=== PATIENT | male | born 1995 | race Caucasian/White ===

== ENCOUNTER 2016-11-10 19:26 | Emergency (ER) | payer SELFPAY ==
[~2016-11-10] VITALS: Ht 180.3 cm; Wt 68.0 kg
[~2016-11-10 19:26] MED LIST: ADDERALL30 MG; AMOXICILLIN500 M2 PO; AUGMENTIN 875875 MG PO; BACTRIM DS 8001 TA1 PO; FLEXERIL10 MG PO; HYDROCODONE BIT1 T11 PO; KEFLEX500 MG PO; MOTRIN600 MG PO; MOTRIN800 MG PO; NAPROSYN500 MG PO; PENICILLIN VK500 MG PO; PREDNISONE20 M1 PO; Peridex 473 ML473 ML PO; TRAMADOL HCL50 MG PO; TYLENOL W/CODEI1 TA2 PO; ULTRAM50 MG PO; ZOFRAN ODT4 MG SL; ZOFRAN ODT8 MG PO
[2016-11-10] MEDS ORDERED: ADDERALL XR 3030 MG PO (19:56)
== END 2016-11-10 21:32 | disposition home or self-care (01) ==
LOC: ED 19:26
DX: S86.911A Strain of unspecified muscle(s) and tendon(s) at lower leg level, right leg, initial encounter (principal); F17.200 Nicotine dependence, unspecified, uncomplicated; X58.XXXA Exposure to other specified factors, initial encounter; Y93.89 Activity, other specified; Y92.481 Parking lot as the place of occurrence of the external cause; Y99.9 Unspecified external cause status

== ENCOUNTER 2017-06-15 16:41 | Emergency (ER) | payer OTHER ==
[~2017-06-15 16:41] MED LIST changes: +ADDERALL XR 3030 MG PO
[2017-06-15] MEDS ORDERED: ANAPROX DS550 MG PO (17:26)
[2017-06-15] MEDS ORDERED: CLINDAMYCIN HC300 MG PO (17:26)
== END 2017-06-15 17:49 | disposition home or self-care (01) ==
LOC: ED 16:41
DX: K08.89 Other specified disorders of teeth and supporting structures (principal); F17.200 Nicotine dependence, unspecified, uncomplicated

== ENCOUNTER → 2018-07-22 | Outpatient (CLI) | payer OTHER ==
[~2018-07-22] MED LIST changes: +ACCU-CHEK FAST1 EACH MC; +ALCOHOL PADS1 EACH T; +ANAPROX DS550 MG PO; +CLINDAMYCIN HC300 MG PO; +Humalog SQ; +INSULIN PEN NE1 EACH MC; +LISINOPRIL2.5 MG PO; +METFORMIN HCL500 M2 PO; +TEST STRIPS1 EACH MC
== END | disposition home or self-care (01) ==
LOC: RESCLI 10:19
DX: E11.9 Type 2 diabetes mellitus without complications (principal); F17.200 Nicotine dependence, unspecified, uncomplicated; Z79.4 Long term (current) use of insulin; Z71.6 Tobacco abuse counseling; Z79.899 Other long term (current) drug therapy

== ENCOUNTER → 2018-11-02 | Outpatient (CLI) | payer OTHER ==
[2018-11-02 15:07] LABS: BASO % 0.5 % (0.0-1.0); EOS # 0.1 10*3/uL (0.0-0.4); EOS % 1.6 % (1.0-4.0); HEMATOCRIT 42.6 % (42.0-52.0); HEMOGLOBIN 14.6 g/dl (14.0-18.0); LYMPH # 1.1 10*3/uL (1.3-4.4); LYMPH % 25.2 % (27.0-41.0); MEAN CELL VOLUME 88.2 fl (80.0-94.0); MEAN CORPUSCULAR HGB 30.2 pg (27.0-31.0); MEAN CORPUSCULAR HGB CONC 34.3 g/dl (33.0-37.0); MEAN PLATELET VOLUME 10.7 fl (9.6-12.3); MONO # 0.5 10*3/uL (0.1-1.0); MONO % 11.6 % (3.0-9.0); NEUT # 2.7 10*3/uL (2.3-7.9); NEUT % 60.6 % (47.0-73.0); PLATELET COUNT AUTOMATED 193 10*3/uL (130-400); RED BLOOD COUNT 4.83 10*6/uL (4.50-5.90); RED CELL DISTRI WIDTH 12.8 % (0-14.5); WHITE BLOOD COUNT 4.4 10*3/uL (4.8-10.8)
[2018-11-02 15:20] LABS: BUN 15 mg/dl (7-24); CHLORIDE 96 mmol/L (98-107); CREATININE 1.21 mg/dL (0.70-1.30); POTASSIUM 4.1 mmol/L (3.5-5.1); SODIUM 131 mmol/L (136-145)
[2018-11-10 17:13] LABS: INSULIN ANTIBODIES 141598 51 uU/mL (.)
== END | disposition home or self-care (01) ==
LOC: LAB 13:34 → RESCLI 13:34
PROVIDERS: Internal Medicine
DX: E11.9 Type 2 diabetes mellitus without complications (principal)

== ENCOUNTER → 2018-11-10 | Outpatient (CLI) | payer OTHER | END | disposition home or self-care (01) | LOC: RESCLI 01:33 | DX: E11.9 Type 2 diabetes mellitus without complications (principal); F17.210 Nicotine dependence, cigarettes, uncomplicated; Z79.4 Long term (current) use of insulin; Z71.6 Tobacco abuse counseling; Z88.8 Allergy status to other drugs, medicaments and biological substances; Z79.899 Other long term (current) drug therapy ==

== ENCOUNTER → 2018-11-23 | Outpatient (CLI) | payer OTHER | END | disposition home or self-care (01) | LOC: RESCLI 13:14 | DX: E11.9 Type 2 diabetes mellitus without complications (principal); F17.210 Nicotine dependence, cigarettes, uncomplicated; Z79.4 Long term (current) use of insulin; Z79.899 Other long term (current) drug therapy; Z79.84 Long term (current) use of oral hypoglycemic drugs; Z88.8 Allergy status to other drugs, medicaments and biological substances ==

== ENCOUNTER 2019-09-10 15:28 | Emergency (ER) | payer OTHER ==
[~2019-09-10] VITALS: Ht 177.8 cm; Wt 72.6 kg
[2019-09-10] MEDS ORDERED: NOVOLOG10 ML IV (16:09)
== END 2019-09-10 16:11 | disposition home or self-care (01) ==
LOC: ED 15:28
DX: E11.65 Type 2 diabetes mellitus with hyperglycemia (principal); Z76.0 Encounter for issue of repeat prescription; F17.200 Nicotine dependence, unspecified, uncomplicated; Z79.899 Other long term (current) drug therapy

== ENCOUNTER → 2019-11-02 | Outpatient (CLI) | payer OTHER ==
[~2019-11-02] MED LIST changes: +NOVOLOG10 ML IV
== END | disposition home or self-care (01) ==
LOC: RESCLI 14:03
DX: E11.65 Type 2 diabetes mellitus with hyperglycemia (principal); Z71.6 Tobacco abuse counseling; K21.9 Gastro-esophageal reflux disease without esophagitis; F12.90 Cannabis use, unspecified, uncomplicated; R56.9 Unspecified convulsions; Z79.4 Long term (current) use of insulin; Z72.0 Tobacco use; Z79.899 Other long term (current) drug therapy

== ENCOUNTER 2020-01-04 02:13 | Inpatient (IN) | payer OTHER ==
[2020-01-04] VITALS (7 sets, daily range): BP systolic 92–123; BP diastolic 50–71
[~2020-01-04] VITALS: Ht 180.3 cm; Wt 61.0 kg
[2020-01-04 03:02] LABS: BASO % 0.6 % (0.0-1.0); EOS % 0.6 % (1.0-4.0); HEMATOCRIT 46.3 % (42.0-52.0); HEMOGLOBIN 15.6 g/dl (14.0-18.0); LYMPH # 0.6 10*3/uL (1.3-4.4); LYMPH % 8.9 % (27.0-41.0); MEAN CELL VOLUME 91.9 fl (80.0-94.0); MEAN CORPUSCULAR HGB CONC 33.7 g/dl (33.0-37.0); MEAN PLATELET VOLUME 10.2 fl (9.6-12.3); MONO # 0.7 10*3/uL (0.1-1.0); MONO % 11.3 % (3.0-9.0); NEUT # 4.9 10*3/uL (2.3-7.9); NEUT % 78.1 % (47.0-73.0); PLATELET COUNT AUTOMATED 204 10*3/uL (130-400); RED BLOOD COUNT 5.04 10*6/uL (4.50-5.90); RED CELL DISTRI WIDTH 11.6 % (0-14.5); WHITE BLOOD COUNT 6.3 10*3/uL (4.8-10.8)
[2020-01-04 03:18] LABS: ALBUMIN 3.6 gm/dl (3.1-4.5); ALKALINE PHOSPHATASE 132 U/L (45-117); BUN 14 mg/dl (7-24); CHLORIDE 90 mmol/L (98-107); CREATININE 1.46 mg/dL (0.70-1.30); POTASSIUM 4.3 mmol/L (3.5-5.1); SGOT/AST 36 IU/L (3-35); SGPT/ALT 57 U/L (12-78); SODIUM 124 mmol/L (136-145); TOTAL PROTEIN 7.6 gm/dL (6.4-8.2)
--- NOTE | 2020-01-04 05:25 | NUR ---
A 24, admitted to ICCU, under the services of EMPERATRIZ Barnhart DO with a diagnosis of HYPONATREMIA, DKA. Chief complaint is GENERALIZED BODY ACHES & COUGH. REST OF THE FAMILY TESTED + FLU A FEW DAYS AGO. Patient arrived via stretcher from ER. Monitor applied. Initial assessment completed. Vital signs taken and recorded. EMPERATRIZ BARNHART DO notified of admission to the unit. Orders received. See assessment for past medical history, medications and allergies. Patient and/or family oriented to unit. [facility]U visitation policy reviewed. Clothing/patient valuable form completed. INSULIN DRIP & IVF BOLUS INFUSING KAREN WILLAMS
[2020-01-04] MEDS ORDERED: PROTONIX20 MG PO (05:37)
[2020-01-04] MEDS ORDERED: LANTUS SOL100 UNIT/1 SC (05:38)
[2020-01-04] MEDS ORDERED: HUMALOG100 UNIT/1 SQ (05:38)
[2020-01-04 06:28] LABS: BUN 12 mg/dl (7-24); CHLORIDE 101 mmol/L (98-107); CREATININE 1.29 mg/dL (0.70-1.30); PHOSPHOROUS 1.6 mg/dL (2.5-4.9); POTASSIUM 3.5 mmol/L (3.5-5.1); SODIUM 133 mmol/L (136-145)
--- NOTE | 2020-01-04 06:39 | NUR ---
DR SALCEDO NOTIFIED OF AM LAB RESULTS (LOW PHOSPHORUS & GLUCOSE)
--- NOTE | 2020-01-04 07:43 | NUR ---
TYLENOL GIVEN PO FOR ELEVATED TEMP
--- NOTE | 2020-01-04 08:00 | NUR ---
INSULIN DRIP DECREASED TO 9 UNITS/HR - DR TALBOT AWARE OF GLUCOSE LEVEL & NEW ORDER RECEIVED
--- NOTE | 2020-01-04 09:00 | NUR ---
INSULIN DECREASED TO 5 UNITS/HR
[2020-01-04 09:08] LABS: BUN 10 mg/dl (7-24); CHLORIDE 109 mmol/L (98-107); CREATININE 0.92 mg/dL (0.70-1.30); POTASSIUM 3.4 mmol/L (3.5-5.1); SODIUM 137 mmol/L (136-145)
--- NOTE | 2020-01-04 09:30 | NUR ---
INSULIN DRIP STOPPED - DR TALBOT MADE AWARE OF BS 73..
[2020-01-04 12:23] LABS: BUN 11 mg/dl (7-24); CHLORIDE 105 mmol/L (98-107); CREATININE 0.93 mg/dL (0.70-1.30); POTASSIUM 4.3 mmol/L (3.5-5.1); SODIUM 134 mmol/L (136-145)
--- NOTE | 2020-01-04 13:21 | NUR ---
DR AYERS ROUNDED A SECOND TIME TO CHECK ON PATIENT STATUS
--- NOTE | 2020-01-04 16:40 | NUR ---
PATIENT DOZING SINCE TYLENOL GIVEN
[2020-01-04 16:52] LABS: BUN 10 mg/dl (7-24); CHLORIDE 105 mmol/L (98-107); CREATININE 0.87 mg/dL (0.70-1.30); SODIUM 134 mmol/L (136-145)
--- NOTE | 2020-01-04 20:00 | NUR ---
Patient sitting up in bed, states he is feeling better. Patient states he is eating, with no nausea. Patient received visitor and was the visitor was instructed with proper use of ppe. Patient denies any needs at this time. Patient left with call light in reach.
--- NOTE | 2020-01-04 21:34 | NUR ---
Patient medicated with tylenol for headache. Will reassess.
--- NOTE | 2020-01-04 23:46 | NUR ---
Patient stated the tylenol was effective for his headache.
[2020-01-05] VITALS: BP 94/47
--- NOTE | 2020-01-05 02:30 | NUR ---
24 HR chart check completed.
[2020-01-05 04:00] VITALS: BP 109/67
[2020-01-05 06:18] LABS: BASO % 0.9 % (0.0-1.0); EOS # 0.1 10*3/uL (0.0-0.4); EOS % 2.9 % (1.0-4.0); HEMATOCRIT 41.7 % (42.0-52.0); HEMOGLOBIN 13.9 g/dl (14.0-18.0); LYMPH # 1.5 10*3/uL (1.3-4.4); LYMPH % 32.7 % (27.0-41.0); MEAN CELL VOLUME 89.9 fl (80.0-94.0); MEAN CORPUSCULAR HGB CONC 33.3 g/dl (33.0-37.0); MEAN PLATELET VOLUME 10.4 fl (9.6-12.3); MONO # 0.9 10*3/uL (0.1-1.0); MONO % 19.1 % (3.0-9.0); PLATELET COUNT AUTOMATED 171 10*3/uL (130-400); RED BLOOD COUNT 4.64 10*6/uL (4.50-5.90); RED CELL DISTRI WIDTH 11.5 % (0-14.5); WHITE BLOOD COUNT 4.5 10*3/uL (4.8-10.8)
[2020-01-05 06:46] LABS: BUN 14 mg/dl (7-24); CHLORIDE 100 mmol/L (98-107); CREATININE 0.79 mg/dL (0.70-1.30); PHOSPHOROUS 3.5 mg/dL (2.5-4.9); POTASSIUM 3.6 mmol/L (3.5-5.1); SODIUM 132 mmol/L (136-145)
[2020-01-05 08:00] VITALS: BP 112/71
--- NOTE | 2020-01-05 08:44 | NUR ---
PT AAOX3. VSS. PT DENIES COMPLAINTS AT PRESENT TIME. NO ACUTE DISTRESS NOTED.
--- NOTE | 2020-01-05 09:00 | NUR ---
PT REFUSED BATH. HE STATED "I'LL GET A SHOWER WHEN I GET HOME."
--- NOTE | 2020-01-05 09:33 | NUR ---
PT ASKED TO SEE THE DOCTOR. DR PUCKETT IN TO SEE PT. PT STATED HE WANTED TO BE DISCHARGED. THE PT AGREED TO STAY UNTIL SEEN BY DR AYERS.
--- NOTE | 2020-01-05 11:00 | NUR ---
PT'S BEDSIDE GLUCOSE IS 500. PT REFUSED RESTICK OR REDRAW FROM LAB. DOCTOR WILL BE NOTIFIED.
[2020-01-05] MEDS ORDERED: Lantus SC (11:24)
[2020-01-05] MEDS ORDERED: TAMIFLU 75MG CA75 MG PO (11:24)
--- NOTE | 2020-01-05 11:31 | NUR ---
DR AYERS NOTIFIED OF PT'S BLOOD SUGAR OF 500 AND OF PT WANTING TO LEAVE AMA. DR AYERS IN TO SEE PT. DISCSSED PT'S CONDITION WITH PT. DISCHARGE ORDERS RECEIVED. PT WOULD ONLY TAKE 11 UNITS OF INSULIN COVERAGE FOR BLOOD SUGAR OF 500. HE STATES HE IS "WAY TOO BRITTLE"
--- NOTE | 2020-01-05 11:50 | NUR ---
Discharge instructions reviewed with patient. Patient receptive and verbalizes understanding. Follow-up care arranged. Written instructions given to patient. IZA OLSON
== END 2020-01-05 11:50 | disposition home or self-care (01) | DRG 420 ==
LOC: ED 02:13 → ICCU 03:38 → EDHOLD 03:38 → ICCU 05:11
PROVIDERS: Emergency Medicine; Internal Medicine; Student in an Organized Health Care Education/Training Program; ADMIT Internal Medicine
DX: E10.10 Type 1 diabetes mellitus with ketoacidosis without coma (principal); N17.0 Acute kidney failure with tubular necrosis; J10.1 Influenza due to other identified influenza virus with other respiratory manifestations; E87.1 Hypo-osmolality and hyponatremia; E87.8 Other disorders of electrolyte and fluid balance, not elsewhere classified; E44.1 Mild protein-calorie malnutrition; R74.0 Nonspecific elevation of levels of transaminase and lactic acid dehydrogenase [LDH]; F17.210 Nicotine dependence, cigarettes, uncomplicated; Z68.1 Body mass index [BMI] 19.9 or less, adult; Z71.6 Tobacco abuse counseling; Z79.899 Other long term (current) drug therapy; Z83.3 Family history of diabetes mellitus

== ENCOUNTER 2020-06-08 21:57 | Observation (INO) | payer OTHER ==
[~2020-06-08] VITALS: Ht 180.3 cm; Wt 66.8 kg
[~2020-06-08 21:57] MED LIST changes: +HUMALOG100 UNIT/1 SQ; +LANTUS SOL100 UNIT/1 SC; +Lantus SC; +PROTONIX20 MG PO; +TAMIFLU 75MG CA75 MG PO
[2020-06-08 22:04] VITALS: BP 119/78
[2020-06-08] MEDS ORDERED: LANTUS SOL100 UNIT/1 SC (22:28)
[2020-06-08 22:34] LABS: BASO # 0.1 10*3/uL (0.0-0.1); BASO % 0.8 % (0.0-1.0); EOS # 0.2 10*3/uL (0.0-0.4); EOS % 2.9 % (1.0-4.0); HEMATOCRIT 44.5 % (42.0-52.0); LYMPH # 2.4 10*3/uL (1.3-4.4); LYMPH % 38.8 % (27.0-41.0); MEAN CELL VOLUME 87.6 fl (80.0-94.0); MEAN CORPUSCULAR HGB 30.3 pg (27.0-31.0); MEAN CORPUSCULAR HGB CONC 34.6 g/dl (33.0-37.0); MEAN PLATELET VOLUME 10.4 fl (9.6-12.3); MONO # 0.6 10*3/uL (0.1-1.0); MONO % 9.1 % (3.0-9.0); NEUT % 48.2 % (47.0-73.0); PLATELET COUNT AUTOMATED 262 10*3/uL (130-400); RED BLOOD COUNT 5.08 10*6/uL (4.50-5.90); RED CELL DISTRI WIDTH 11.5 % (0-14.5); WHITE BLOOD COUNT 6.2 10*3/uL (4.8-10.8)
[2020-06-08 22:50] LABS: ALBUMIN 3.4 gm/dl (3.1-4.5); ALKALINE PHOSPHATASE 94 U/L (45-117); BUN 12 mg/dl (7-24); CHLORIDE 95 mmol/L (98-107); CREATININE 1.37 mg/dL (0.70-1.30); LIPASE 195 U/L (73-393); POTASSIUM 3.9 mmol/L (3.5-5.1); SGOT/AST 21 IU/L (3-35); SGPT/ALT 30 U/L (12-78); SODIUM 128 mmol/L (136-145); TOTAL PROTEIN 7.2 gm/dL (6.4-8.2)
--- NOTE | 2020-06-08 23:05 | NUR ---
RETURNED LAB PHONE CALL, CRITICAL RESULTS OBTAINED.ASIA LOCKWOOD NOTIFIED.
[2020-06-08 23:06] LABS: TROPONIN I < 0.015 ng/ml (<0.045)
--- NOTE | 2020-06-08 23:41 | NUR ---
PT PROMPTED FOR URINE SPECIMEN.PT STATE UNABLE TO PROVIDE ONE AT THIS TIME.
[2020-06-09 00:02] VITALS: BP 118/73
--- NOTE | 2020-06-09 00:03 | NUR ---
PT REPORTS RELIEF FROM HEADACHE AFTER RECEIVING MEDICATION.
--- NOTE | 2020-06-09 00:26 | NUR ---
PT DENIES ANY OPEN WOUNDS SORES OR CUTS AT THIS TIME,
[2020-06-09 00:46] VITALS: BP 116/69
--- NOTE | 2020-06-09 00:46 | NUR ---
Time: 45 A 24 year old male admitted to 5E under services of MAURILIO MUÑOZ DO. Pt. arrived via stretcher from ER. Chief complaint: hyperglycemia.. PAKO ACUÑA
[2020-06-09 03:26] LABS: BILIRUBIN NEGATIVE (NEGATIVE); BLOOD NEGATIVE (NEGATIVE); CLARITY CLEAR (CLEAR); COLOR STRAW (YELLOW); GLUCOSE 2+ (NEGATIVE); KETONE NEGATIVE (NEGATIVE); SPECIFIC GRAVITY 1.005 (1.005-1.030)
[2020-06-09 03:27] LABS: LEUKO ESTERASE NEGATIVE (NEGATIVE); NITRITE NEGATIVE (NEGATIVE); UROBILINOGEN 0.2 E.U./dl (0.2-1.0)
[2020-06-09 03:34] LABS: BACTERIA TRACE; EPITHELIAL CELLS 0-2; RBC 0-2 rbc/hpf (0-2); URINE AMPHETAMINES < 1000 (1000ng/ml); URINE BARBITURATES < 200 (200ng/ml); URINE BENZODIAZEPINES < 200 (200ng/ml); URINE CANNABINOIDS (THC) > 50 (50ng/ml); URINE COCAINE > 300 (300ng/ml); URINE METHADONE < 300 (300ng/ml); URINE OPIATES < 300 (300ng/ml); WBC 0-2 wbc/hpf (0-5)
[2020-06-09 03:35] LABS: URINE PHENCYCLIDINE < 25 (25ng/ml)
[2020-06-09 06:59] LABS: BASO # 0.1 10*3/uL (0.0-0.1); BASO % 1.1 % (0.0-1.0); EOS # 0.2 10*3/uL (0.0-0.4); EOS % 3.5 % (1.0-4.0); HEMATOCRIT 40.9 % (42.0-52.0); LYMPH # 2.5 10*3/uL (1.3-4.4); LYMPH % 43.2 % (27.0-41.0); MEAN CELL VOLUME 88.9 fl (80.0-94.0); MEAN CORPUSCULAR HGB CONC 33.7 g/dl (33.0-37.0); MEAN PLATELET VOLUME 10.4 fl (9.6-12.3); MONO # 0.5 10*3/uL (0.1-1.0); MONO % 8.2 % (3.0-9.0); NEUT # 2.5 10*3/uL (2.3-7.9); NEUT % 43.8 % (47.0-73.0); PLATELET COUNT AUTOMATED 253 10*3/uL (130-400); RED CELL DISTRI WIDTH 11.5 % (0-14.5); WHITE BLOOD COUNT 5.7 10*3/uL (4.8-10.8)
[2020-06-09 07:26] LABS: BUN 12 mg/dl (7-24); CHLORIDE 110 mmol/L (98-107); CREATININE 0.93 mg/dL (0.70-1.30); POTASSIUM 3.3 mmol/L (3.5-5.1)
--- NOTE | 2020-06-09 07:30 | NUR ---
TOOK OVER CARE OF PT AT THIS TIME. PT RESTING IN BED. NO S/S OF DISTRESS NOTED. RESPIRATIONS UNLABORED. FLUIDS INFUSING PER ORDERS. IV SITE INTACT. DRESSING C/D/I. CALL LIGHT IN REACH.
[2020-06-09 07:56] VITALS: BP 138/82
--- NOTE | 2020-06-09 08:14 | NUR ---
SURAJ CHRISTIANSON AWARE OF HR 45. PT ASYMPTOMATIC AT THIS TIME.
[2020-06-09 08:16] LABS: SODIUM 143 mmol/L (136-145)
--- NOTE | 2020-06-09 11:37 | NUR ---
PT STATES THAT HE NEEDS TO LEAVE FACILITY DUE TO PERSONAL MATTERS AT HOME. WILL NOTIFY PRIMARY TEAM OF THIS.
--- NOTE | 2020-06-09 11:40 | NUR ---
PT HEART RATE NOW 68.
--- NOTE | 2020-06-09 11:40 | NUR ---
DR ALMENDAREZ STATES THAT SHE WOULD LIKE PT TO STAY FOR LUNCH AND MONITOR HIS INTAKE. BLOOD SUGAR 244. WILL COVER PT WITH INSULIN AND NOTIFY PT OF THIS.
[2020-06-09] MEDS ORDERED: Synthroid,Lev100 MCG PO (11:45)
[2020-06-09 12:00] VITALS: BP 140/86
--- NOTE | 2020-06-09 12:04 | NUR ---
Discharge instructions reviewed with patient/family. Patient receptive and verbalizes understanding. Follow-up care arranged. Written instructions given to patient/family. SURAJ OTTO
== END 2020-06-09 12:04 | disposition home or self-care (01) ==
LOC: ED 21:57 → EDHOLD 23:34 → 5E 23:46
PROVIDERS: Nurse Practitioner Family; Student in an Organized Health Care Education/Training Program; ADMIT Emergency Medicine
DX: E11.65 Type 2 diabetes mellitus with hyperglycemia (principal); N17.0 Acute kidney failure with tubular necrosis; E87.2 Acidosis; E44.0 Moderate protein-calorie malnutrition; F17.210 Nicotine dependence, cigarettes, uncomplicated; E87.8 Other disorders of electrolyte and fluid balance, not elsewhere classified; E87.1 Hypo-osmolality and hyponatremia; F12.10 Cannabis abuse, uncomplicated; F14.10 Cocaine abuse, uncomplicated; R00.1 Bradycardia, unspecified; D64.9 Anemia, unspecified; E87.6 Hypokalemia; E03.9 Hypothyroidism, unspecified

== ENCOUNTER 2020-08-09 02:12 | Emergency (ER) | payer OTHER ==
[~2020-08-09] VITALS: Ht 180.3 cm; Wt 68.5 kg
[~2020-08-09 02:12] MED LIST changes: +Synthroid,Lev100 MCG PO
[2020-08-09 03:49] LABS: BILIRUBIN Negative (Negative); BLOOD Negative (Negative); CLARITY Clear (Clear); COLOR Yellow (Yellow); GLUCOSE 3+ (Negative); KETONE Negative (Negative); LEUKO ESTERASE Negative (Negative); NITRITE Negative (Negative); SPECIFIC GRAVITY >= 1.030 (1.001-1.030)
== END 2020-08-09 04:53 | disposition home or self-care (01) ==
LOC: ED 02:12
PROVIDERS: Emergency Medicine
DX: S86.911A Strain of unspecified muscle(s) and tendon(s) at lower leg level, right leg, initial encounter (principal); S20.20XA Contusion of thorax, unspecified, initial encounter; S09.90XA Unspecified injury of head, initial encounter; T14.8XXA Other injury of unspecified body region, initial encounter; Z79.899 Other long term (current) drug therapy; Z79.4 Long term (current) use of insulin; X58.XXXA Exposure to other specified factors, initial encounter; Y93.89 Activity, other specified; Y92.89 Other specified places as the place of occurrence of the external cause; Y99.8 Other external cause status

== ENCOUNTER 2020-10-01 14:08 | Emergency (ER) | payer OTHER ==
[2020-10-01 14:47] LABS: BASO % 0.6 % (0.0-1.0); EOS # 0.1 10*3/uL (0.0-0.4); EOS % 1.4 % (1.0-4.0); HEMATOCRIT 42.4 % (42.0-52.0); LYMPH # 1.4 10*3/uL (1.3-4.4); LYMPH % 28.4 % (27.0-41.0); MEAN CELL VOLUME 87.2 fl (80.0-94.0); MEAN CORPUSCULAR HGB 29.2 pg (27.0-31.0); MEAN CORPUSCULAR HGB CONC 33.5 g/dl (33.0-37.0); MEAN PLATELET VOLUME 9.7 fl (9.6-12.3); MONO # 0.4 10*3/uL (0.1-1.0); MONO % 8.1 % (3.0-9.0); NEUT % 61.3 % (47.0-73.0); PLATELET COUNT AUTOMATED 251 10*3/uL (130-400); RED BLOOD COUNT 4.86 10*6/uL (4.50-5.90); RED CELL DISTRI WIDTH 11.9 % (0-14.5); WHITE BLOOD COUNT 4.8 10*3/uL (4.8-10.8)
[2020-10-01 15:02] LABS: ALBUMIN 3.7 gm/dl (3.1-4.5); ALKALINE PHOSPHATASE 84 U/L (45-117); BUN 10 mg/dl (7-24); CHLORIDE 101 mmol/L (98-107); CREATININE 1.05 mg/dL (0.70-1.30); POTASSIUM 4.2 mmol/L (3.5-5.1); SGOT/AST 12 IU/L (3-35); SGPT/ALT 21 U/L (12-78); SODIUM 135 mmol/L (136-145); TOTAL PROTEIN 7.3 gm/dL (6.4-8.2)
[2020-10-01] MEDS ORDERED: AUGMENTIN 875875 MG PO (15:17)
[2020-10-01] MEDS ORDERED: FLONASE ALLERG9.9 ML NAS (15:17)
== END 2020-10-01 15:22 | disposition home or self-care (01) ==
LOC: ED 14:08
PROVIDERS: Nurse Practitioner Family
DX: J01.90 Acute sinusitis, unspecified (principal); E11.9 Type 2 diabetes mellitus without complications; K21.9 Gastro-esophageal reflux disease without esophagitis; F90.9 Attention-deficit hyperactivity disorder, unspecified type; F17.200 Nicotine dependence, unspecified, uncomplicated; Z79.4 Long term (current) use of insulin; Z79.899 Other long term (current) drug therapy

== ENCOUNTER 2020-10-22 12:37 | Emergency (ER) | payer OTHER ==
[~2020-10-22] VITALS: Ht 180.3 cm; Wt 81.6 kg
[~2020-10-22 12:37] MED LIST changes: +FLONASE ALLERG9.9 ML NAS
== END 2020-10-22 15:15 | disposition left against medical advice (07) ==
LOC: ED 12:37
DX: E11.9 Type 2 diabetes mellitus without complications (principal); Z76.0 Encounter for issue of repeat prescription; Z53.21 Procedure and treatment not carried out due to patient leaving prior to being seen by health care provider

== ENCOUNTER 2020-11-03 16:24 | Emergency (ER) | payer OTHER ==
[2020-11-03 17:23] LABS: ALBUMIN 3.7 gm/dl (3.1-4.5); ALKALINE PHOSPHATASE 91 U/L (45-117); BUN 18 mg/dl (7-24); CHLORIDE 99 mmol/L (98-107); POTASSIUM 3.8 mmol/L (3.5-5.1); SGOT/AST 9 IU/L (3-35); SGPT/ALT 24 U/L (12-78); SODIUM 133 mmol/L (136-145); TOTAL PROTEIN 7.4 gm/dL (6.4-8.2)
[2020-11-03] MEDS ORDERED: HUMALOG100 UNIT/1 SC (17:41)
== END 2020-11-03 18:24 | disposition home or self-care (01) ==
LOC: ED 16:24
PROVIDERS: Student in an Organized Health Care Education/Training Program
DX: E10.65 Type 1 diabetes mellitus with hyperglycemia (principal); Z76.0 Encounter for issue of repeat prescription; Z79.4 Long term (current) use of insulin

== ENCOUNTER 2021-04-28 21:24 | Emergency (ER) | payer OTHER ==
[~2021-04-28] VITALS: Ht 180.3 cm; Wt 70.3 kg
[~2021-04-28 21:24] MED LIST changes: +HUMALOG100 UNIT/1 SC
[2021-04-28 21:47] LABS: BASO # 0.1 10*3/uL (0.0-0.1); BASO % 0.6 % (0.0-1.0); EOS # 0.2 10*3/uL (0.0-0.4); HEMATOCRIT 45.9 % (42.0-52.0); LYMPH # 1.9 10*3/uL (1.3-4.4); LYMPH % 22.1 % (27.0-41.0); MEAN CELL VOLUME 91.1 fl (80.0-94.0); MEAN CORPUSCULAR HGB 30.8 pg (27.0-31.0); MEAN CORPUSCULAR HGB CONC 33.8 g/dl (33.0-37.0); MEAN PLATELET VOLUME 9.8 fl (9.6-12.3); MONO # 0.5 10*3/uL (0.1-1.0); MONO % 5.7 % (3.0-9.0); NEUT % 68.8 % (47.0-73.0); PLATELET COUNT AUTOMATED 297 10*3/uL (130-400); RED BLOOD COUNT 5.04 10*6/uL (4.50-5.90); RED CELL DISTRI WIDTH 11.5 % (0-14.5); WHITE BLOOD COUNT 8.7 10*3/uL (4.8-10.8)
[2021-04-28 22:01] LABS: ALBUMIN 3.8 gm/dl (3.1-4.5); ALKALINE PHOSPHATASE 113 U/L (45-117); BUN 12 mg/dl (7-24); CHLORIDE 100 mmol/L (98-107); CREATININE 0.87 mg/dL (0.70-1.30); POTASSIUM 3.1 mmol/L (3.5-5.1); SGOT/AST 16 IU/L (3-35); SGPT/ALT 33 U/L (12-78); SODIUM 134 mmol/L (136-145); TOTAL PROTEIN 8.1 gm/dL (6.4-8.2)
[2021-04-28] MEDS ORDERED: K-TAB20 MEQ PO (23:09)
== END 2021-04-29 00:44 | disposition home or self-care (01) ==
LOC: ED 21:24
PROVIDERS: Physician Assistant
DX: F10.920 Alcohol use, unspecified with intoxication, uncomplicated (principal); R11.2 Nausea with vomiting, unspecified; E10.9 Type 1 diabetes mellitus without complications; F17.200 Nicotine dependence, unspecified, uncomplicated; Z79.2 Long term (current) use of antibiotics; Z79.899 Other long term (current) drug therapy; Z79.4 Long term (current) use of insulin; Y90.6 Blood alcohol level of 120-199 mg/100 ml

== ENCOUNTER → 2021-06-04 | Outpatient (CLI) | payer OTHER ==
[~2021-06-04] MED LIST changes: +K-TAB20 MEQ PO
[2021-06-04 09:24] LABS: FREE T4 0.77 ng/dl (0.76-1.46); THYROXINE (T4) TOTAL 7.8 ug/dl (4.5-12.1)
[2021-06-04 09:36] LABS: THYROID STIM HORMONE (HS) 24.1 uIU/ml (0.358-4.75)
[2021-06-05 05:06] LABS: RHEUMATOID ARTHRITIS FACTOR <10.0 IU/mL (0.0-13.9); TOTAL T3 (TT3) 116 ng/dL (71-180)
[2021-06-05 15:07] LABS: t-TRANSGLUTAMINASE (tTG) IGA <2 U/mL (0-3)
== END | disposition home or self-care (01) ==
LOC: LAB 08:41
PROVIDERS: ATTEND Internal Medicine Endocrinology, Diabetes & Metabolism
DX: E55.9 Vitamin D deficiency, unspecified (principal); E03.9 Hypothyroidism, unspecified; E10.65 Type 1 diabetes mellitus with hyperglycemia

== ENCOUNTER → 2022-04-01 | Outpatient (CLI) | payer OTHER ==
[2022-04-01 11:10] LABS: BILIRUBIN Negative (Negative); BLOOD Negative (Negative); CLARITY Clear (Clear); COLOR Yellow (Yellow); GLUCOSE 3+ (Negative); KETONE Negative (Negative); LEUKO ESTERASE Negative (Negative); NITRITE Negative (Negative); PH 6.5 (4.5-8.0); SPECIFIC GRAVITY >= 1.030 (1.001-1.030)
[2022-04-01 11:30] LABS: ALKALINE PHOSPHATASE 95 U/L (45-117); BUN 13 mg/dl (7-24); CHOLESTEROL 144 mg/dL (<200); CREATININE 1.06 mg/dL (0.70-1.30); LDL CHOLESTEROL 78 mg/dL (9-159); SGOT/AST 16 IU/L (3-35); SGPT/ALT 24 U/L (12-78); TOTAL PROTEIN 6.7 gm/dL (6.4-8.2); TRIGLYCERIDES 113 mg/dl (<150)
[2022-04-01 11:58] LABS: CHLORIDE 105 mmol/L (98-107); POTASSIUM 4.1 mmol/L (3.5-5.1); SODIUM 138 mmol/L (136-145)
[2022-04-01 13:00] LABS: EPITHELIAL CELLS 0-2; WBC 0-2 wbc/hpf (0-5)
== END | disposition home or self-care (01) ==
LOC: LAB 10:34
PROVIDERS: ATTEND Internal Medicine
DX: E10.65 Type 1 diabetes mellitus with hyperglycemia (principal); E78.5 Hyperlipidemia, unspecified; E55.9 Vitamin D deficiency, unspecified; E04.9 Nontoxic goiter, unspecified

== ENCOUNTER 2022-09-08 13:12 | Emergency (ER) | payer OTHER ==
[~2022-09-08] VITALS: Ht 180.3 cm; Wt 77.1 kg
== END 2022-09-08 14:02 | disposition left against medical advice (07) ==
LOC: ED 13:12
DX: Z53.21 Procedure and treatment not carried out due to patient leaving prior to being seen by health care provider (principal)

== ENCOUNTER 2022-10-10 17:21 | Emergency (ER) | payer OTHER ==
[~2022-10-10] VITALS: Wt 75.7 kg
[2022-10-10] MEDS ORDERED: ONDANSETRON4 MG SL (19:55)
== END 2022-10-10 20:03 | disposition home or self-care (01) ==
LOC: ED 17:21
DX: U07.1 COVID-19 (principal); J02.9 Acute pharyngitis, unspecified; R11.2 Nausea with vomiting, unspecified; E11.9 Type 2 diabetes mellitus without complications; Z87.891 Personal history of nicotine dependence

== ENCOUNTER → 2024-12-17 | Outpatient (CLI) | payer OTHER ==
[~2024-12-17] MED LIST changes: +ONDANSETRON4 MG SL
[2024-12-17 10:37] LABS: ALKALINE PHOSPHATASE 115 U/L (46-116); BUN 20 mg/dl (9-23); CHLORIDE 99 mmol/L (98-107); CHOLESTEROL 241 mg/dL (<200); FREE T4 0.81 ng/dl (0.89-1.76); LDL CHOLESTEROL 109 mg/dL (9-159); POTASSIUM 3.8 mmol/L (3.4-5.1); SGPT/ALT 56 U/L (5-49); TOTAL PROTEIN 7.3 gm/dL (6.0-8.0); TRIGLYCERIDES 237 mg/dl (<150)
== END | disposition home or self-care (01) ==
LOC: LAB 09:51
PROVIDERS: Student in an Organized Health Care Education/Training Program; ATTEND Internal Medicine
DX: E10.9 Type 1 diabetes mellitus without complications (principal); E78.2 Mixed hyperlipidemia; E06.3 Autoimmune thyroiditis